=== PATIENT | male | born 1965 | race Caucasian/White ===

== ENCOUNTER 2024-03-19 14:06 | Outpatient (CLI) | payer OTHER ==
[~2024-03-19 14:06] MED LIST: Magnevist 469MG/ML 20 ML VIAL ONE
== END 2024-03-19 14:07 | disposition home or self-care (01) ==
LOC: CSHMRI 14:06
PROVIDERS: ATTEND Psychiatry & Neurology Neurology
DX: M48.02 Spinal stenosis, cervical region (principal); R93.7 Abnormal findings on diagnostic imaging of other parts of musculoskeletal system; Z98.890 Other specified postprocedural states; M47.12 Other spondylosis with myelopathy, cervical region
CPT/HCPCS: 72156